=== PATIENT | female | born 1965 | race Caucasian/White ===

== ENCOUNTER 2019-06-12 09:48 | Emergency (ER) | payer OTHER ==
[2019-06-12 09:58] VITALS: BP 145/76
[2019-06-12] MEDS ORDERED: BUPIVACAINE 0.25%-EPI 1:200000 PF 30 ML VIAL SUBQ STA (13:04)
[2019-06-12] MEDS ORDERED: CLINDAMYCIN 150 MG CAPSULE PO STA (13:05)
--- NOTE | 2019-06-12 13:41 | ED Physician Documentation ---
PD HPI HEENT - Stated complaint Stated Complaint: TOOTH PX - Chief complaint Chief Complaint: Heent - History obtained from History obtained from: Patient - History of Present Illness Timing - onset: How many weeks ago (1) Timing - duration: Weeks (1) Timing - details: Gradual onset, Still present Severity Comments: severe Location: Tooth Improves: Medication (ibuprofen) Worsens: Temperatures, Other (chewing) Associated symptoms: Facial swelling. No: Fever, Congestion, Rhinorrhea, Trismus, Unable to swallow, Swollen nodes, Headache Similar symptoms before: Has not had sx before Recently seen: Not recently seen - Treatment prior to arrival Treatment prior to arrival: ibuprofen Review of Systems Ten Systems: 10 systems reviewed and negative Constitutional: denies: Fever, Chills Nose: reports: Reviewed and negative Throat: reports: Dental pain / toothache Cardiac: denies: Chest pain / pressure Respiratory: denies: Dyspnea GI: denies: Nausea, Vomiting Skin: reports: Reviewed and negative Neurologic: reports: Reviewed and negative Immunocompromised: reports: Reviewed and negative PD PAST MEDICAL HISTORY - Past Medical History Past Medical History: Yes - Present Medications Home Medications: Ambulatory Orders Medication Instructions Recorded Confirmed RX: Clindamycin HCl [Clindamycin 300 mg PO Q6H #28 capsule 06/12/19 300MG CAP] RX: Gabapentin 1,200 mg PO TID 06/12/19 06/12/19 Venlafaxine ER [Effexor ER] 75 mg PO DAILY 06/12/19 06/12/19 - Allergies Allergies/Adverse Reactions: Allergies Allergy/AdvReac Type Severity Reaction Status Date / Time No Known Drug Allergies Allergy Verified 06/12/19 09:58 - Social History Does the pt smoke?: No Smoking Status: Never smoker PD ED PE NORMAL - Vitals Vital signs reviewed: Yes - General General: Alert and oriented X 3, No acute distress, Well developed/nourished - HEENT HEENT: Atraumatic, Moist mucous membranes, Pharynx benign - Neck Neck: Supple, no meningeal sign, No JVD - Cardiac Cardiac: RRR - Respiratory Respiratory: No respiratory distress - Abdomen Abdomen: Soft, Non distended - Female Female : Deferred - Rectal Rectal: Deferred - Derm Derm: Normal color, Warm and dry, No rash - Extremities Extremities: No deformity - Neuro Neuro: Alert and oriented X 3 Eye Opening: Spontaneous Motor: Obeys Commands Verbal: Oriented GCS Score: 15 - Psych Psych: Normal mood, Normal affect PD ED PE EXPANDED - HEENT HEENT: Dental abscess (right upper 5th tooth with apical abscess ) Results - Vitals Vitals: Vital Signs - 24 hr 06/12/19 09:56 Temperature 36.2 C L Heart Rate 71 Respiratory 16 Rate Blood Pressure 145/76 H O2 Saturation 100 Oxygen O2 Source Room air Procedures - Regional nerve block Nerve block site: Other (right upper apical dental block) Right / left: Right Nerve block anesthesia: Marcaine 0.25% Nerve block aftercare: Excellent anesthesia, Patient tolerated well, No complications PD MEDICAL DECISION MAKING - ED course Complexity details: re-evaluated patient, considered differential, d/w patient ED course: ddx - dental caries, dental abscess, pericoronitis 54 y/o F with hx and exam as documented with likely dental abscess, provided dental block here with some spontaneous purulent drainage. started on clindamycin and pt to f/u as outpt with dentist. She has no signs of airway compromise here and is stable for outpt f/u Departure - Departure Disposition: 01 Home, Self Care Clinical Impression: Dental abscess Condition: Stable Record reviewed to determine appropriate education?: Yes Instructions: ED Abscess Dental Follow-Up: your, dentist [Other] Prescriptions: RX: Clindamycin HCl [Clindamycin 300MG CAP] 300 mg PO Q6H #28 capsule Discharge Date/Time: 06/12/19 13:49
== END 2019-06-12 13:49 | disposition home or self-care (01) ==
LOC: ED 09:48
DX: K04.7 Periapical abscess without sinus (principal); K08.89 Other specified disorders of teeth and supporting structures
CPT/HCPCS: 64400; 99282; 99284; A9270